=== PATIENT | male | born 1940 | race Caucasian/White ===

== ENCOUNTER 2022-12-15 10:32 | Outpatient (CLI) | payer MEDICARE, SELFPAY ==
--- NOTE | 2022-12-15 | USCV_ITS ---
Jean CarlosMega jolly Age: 82 Gender: M : 1940 Exam Date: 12/15/2022 10:58 Ordering Phys: Lakisha Scott Technologist: Kiko Blanco [place]am Location[place] [facility] [place] Indication: Edema BP: 100 / 80 HR: 66 Rhythm: Atrial fibrillation Technical Quality: Technically difficult study MEASUREMENTS (Male / Female) Normal Values 2D ECHO LV Diastolic Diameter PLAX 5.9 cm 4.2 - 5.9 / 3.9 - 5.3 cm LV Systolic Diameter PLAX 5.3 cm IVS Diastolic Thickness 0.7 cm 0.6 - 1.0 / 0.6 - 0.9 cm IVS Systolic Thickness 1.1 cm LVPW Diastolic Thickness 1.3 cm 0.6 - 1.0 / 0.6 - 0.9 cm LVPW Systolic Thickness 1.8 cm LVOT Diameter 2.1 cm LV Ejection Fraction 2D Teich 22.2 % LV Ejection Fraction MOD 2C 20.1 % LV Ejection Fraction 2C AL 20.5 % LA Diameter 4.2 cm LA Width 3.6 cm LA Height 5.8 cm RA Width 4.0 cm RA Height 5.0 cm Aorta at Sinotubular Diameter 2.0 cm IVC Diameter 1.5 cm M-MODE Aortic Annulus Diameter 2.4 cm LA Ao Ratio MM 1.7 MV E Point Septal Separation 2.5 cm DOPPLER AV Peak Velocity 187.3 cm/s LVOT Peak Velocity 76.0 cm/s AV Area Cont Eq vti 1.5 cm squared AV Area Cont Eq pk 1.5 cm squared MV Peak Velocity 165.0 cm/s MV Area PHT 8.5 cm squared MV E' Velocity 56.5 cm/s Mitral E to MV E' Ratio 7.7 Mitral E to LV E' Lateral Ratio 7.2 Mitral E to LV E' Septal Ratio 8.3 TR Peak Velocity 260.3 cm/s TR Peak Gradient 27.1 mmHg TR Mean Velocity 212.4 cm/s TR Mean Gradient 18.5 mmHg TR Velocity Time Integral 55.7 cm Right Atrial Pressure 3.0 mmHg Pulmonary Artery Systolic Pressu 30.1 mmHg PV Peak Velocity 105.3 cm/s RV Acceleration Time 0.1 s RV Ejection Time 0.2 s RV AcT/ET 0.3 FINDINGS Left Ventricle Dilated left ventricular cavity. Severely decreased left ventricular systolic function. Left ventricular ejection fraction is estimated at 20 %. Probably severe global hypokinesis. Right Ventricle Normal right ventricular size and systolic function. Right ventricular systolic pressure 30.1 mmHg. Right Atrium Normal right atrial size. Left Atrium Moderately increased left atrial size. Mitral Valve Thickened mitral valve with moderate mitral annular calcification. No mitral valve stenosis. Mild mitral valve regurgitation. Aortic Valve Mildly thickened and calicified trileaflet aortic valve. No aortic valve stenosis. Trace aortic valve regurgitation. Tricuspid Valve Structurally normal tricuspid valve. Pulmonic Valve Pulmonic valve not well visualized. Pericardium No pericardial effusion. Aorta Normal size aortic root and proximal ascending aorta. IVC Inferior vena cava not visualized. CONCLUSIONS 1. This is a technically very difficult study. 2. Dilated left ventricular cavity. Severely decreased left ventricular systolic function. Left ventricular ejection fraction is estimated at 20 %. Probably severe global hypokinesis. 3. Mild mitral valve regurgitation. 4. No prior similar studies to compare. Marielle Cobb MD (Electronically Signed) Final Date: 20 December 2022 17:49 S
== END 2022-12-15 10:33 | disposition home or self-care (01) ==
PROVIDERS: PCP Physician Assistant; Visit Provider Physician Assistant
DX: R60.9 Edema, unspecified (principal)
CPT/HCPCS: 93306

== ENCOUNTER 2022-12-28 20:00 | Outpatient (CLI) | payer MEDICARE, SELFPAY | END 2022-12-28 20:01 | disposition home or self-care (01) | PROVIDERS: PCP Physician Assistant; Visit Provider Physician Assistant | DX: G47.10 Hypersomnia, unspecified (principal); R53.83 Other fatigue; R06.83 Snoring; G47.33 Obstructive sleep apnea (adult) (pediatric) | CPT/HCPCS: 95810 ==

== ENCOUNTER → 2023-01-18 09:40 | Outpatient (BNVA) | payer MEDICARE, SELFPAY | PROVIDERS: PCP Physician Assistant; Visit Provider Internal Medicine | DX: R06.02 Shortness of breath (principal) | CPT/HCPCS: 93225 ==

== ENCOUNTER → 2023-02-27 12:18 | Outpatient (BNVA) | payer MEDICARE, SELFPAY | PROVIDERS: PCP Physician Assistant; Visit Provider Internal Medicine | DX: I11.0 Hypertensive heart disease with heart failure (principal); I50.9 Heart failure, unspecified; Z87.891 Personal history of nicotine dependence | CPT/HCPCS: 93005; 99204 ==

== ENCOUNTER 2023-04-12 10:24 | Observation (INO) | payer MEDICARE, SELFPAY ==
[2023-04-12 07:30] VITALS: BP 152/89; PULSE 72; RESP 18; TEMP 37; O2SAT 96; BMI 38.9
--- NOTE | 2023-04-12 07:30 | XACV_ITS ---
Exam Room: 2 Ht: 165 cm Wt: 106 kg BSA: 2.26 m2 Gender: Male : 1940 Any Known Allergies: Penicillins Exam Priority: Routine Procedure(s): Procedure Description: Diagnostic procedure Procedure Description: Coronary Angiography Diagnostic Cath Status: Elective Diagnostic Findings * INDICATION: 82-year-old man with past medical history of hypertension has recently been diagnosed with significant systolic congestive heart failure with EF of 20%. Has dyspnea on exertion and shortness of breath. Right and left heart cath planned for today to assess etiology of CHF and cardiac pressures. * Proximal Left Anterior Descending: chronic total occlusion, CHARLENE: 0 flow. * Right heart cath was attempted however catheter could not be advanced from right brachial access. Access difficulty in femoral vein as well. Decision made to abort right heart cath and proceed with left heart cath only. * Left Main has no disease. * Circumflex has no disease. * Distal Right Coronary Artery: mild 40% stenosis, CHARLENE: 3 flow. * Coronary angiography shows right dominance. Conclusions 1. Chronic total occlusion of proximal LAD. 2. Moderate RCA stenosis.. 3. Ischemic cardiomyopathy. Recommendations * Guideline directed heart failure therapy. * Outpatient cardiology follow up in 2 weeks. Interventional RX Recommendation: medical therapy and/or counseling Diagnostic RX Recommendation: medical therapy and/or counseling Anticoagulation: Heparin Pressures Phase:Rest AO : 104 / 80 ( 93 ) @ 10:28:00 AM 110 / 75 ( 92 ) @ 10:52:00 AM Clinical Evaluation EBL: 5mL-10mL Procedural Details Procedure Consent Obtained. Pre-Procedure Time Out. Identified patient by full name and date of as verbalized by the patient/guarantor. Does the consent match the physician's order: Yes. Accurate & Complete Informed Consent: Yes. Inpatient/Outpatient History & Physical on Chart: Yes. If H&P is completed, is and addenduem needed: No. Visualize and Verify Site with Patient/Guarantor: N/A. Relevant Radiology Images available: Yes. The risks, benefits, and alternatives of sedation and/or procedure were discussed by physician. The patient agrees to continue. Procedure started. [facility] Clinical Fraility Score: 4: Vulnerable. Park Interpreter Indications: Other/New Onset systolic heart failure. Chest Pain Symptom Assessment: Asymptomatic. Cardiovascular Instability: No. Correct patient, site and procedure confirmed by cath team. PERRLA. Strong, equal hand ironworker foreman bilaterally. Lungs clear x 5 lobes. IV Site on Arrival: 20 gauge in the left anticubital. IV Site on Arrival: 20 gauge in the right anticubital to be used for the RHC procedure. IV Fluids: 0.9% NaCl at KVO. 0 mL infused prior to laundry laborer. Pre Procedural Pulses: bilateral dorsalis pedis was 1+. Pre Procedural Pulses: bilateral posterior tibial was 1+. Pre Procedural Pulses: bilateral radial was 2+. right groin was prepped with chloroprep then draped in the usual sterile fashion. right radial was prepped with chloroprep then draped in the usual sterile fashion. right brachial was prepped with chloroprep then draped in the usual sterile fashion. Physician notified. Patient's family in CPRU. Dr. Burden will update at the completion of the procedure. Equipment: 6F - Radial. Cardiac Cath Pack. ACIST Manifold Kit Model BT 2000. Heparinized Saline (2 units/mL), 1000 mL bag. Physician arrived. Baseline sample Acquired. HR: 71 BPM. Physician scrubbed in. Immediate Pre-Procedure Time Out. Correct Patient: Yes; Correct Procedure: Yes; Correct Site: Yes; Correct Patient Position: Yes; Correct Supplies: Yes; Dried Flammable Prep: Yes; Blood Products Available: N/A;. [place] catheter inserted. [place] wire in through the [place]. Unable to advance swan. [place] wire and swan out. Will move to venous access in the right groin. Lidocaine 1% infiltrated to the right groin. Venous access obtained with a micropuncture set. 6F 0.035 dilator in. 6F 0.035 dilator out. Microdilator in. Microdilator out. 0.035 sheath wire out, manual pressure being held by Dr. Burden. A Manual Compression was successful obtaining hemostatsis at the Right Femoral vein insertion site. Oxygen started at 2liters/min via nasal canula. Lidocaine 1% infiltrated to the right radial. Arterial access obtained. A 5 chilean TIG catheter in over the exchange J wire. Multiple views taken of left coronary artery. Catheter removed over the exchange J wire. A 5 chilean JR4 catheter in over the exchange J wire. Exchange J wire in to reposition the catheter. Catheter removed over the exchange J wire. Will abort radial access and move to right femoral for LHC. A TR Band was successful obtaining hemostatsis at the Right Radial artery insertion site. TR band placed. Hemostasis obtained. Lidocaine 1% infiltrated to the right groin. Arterial access obtained with micropuncture set using ultrasound guidance. A 5 chilean JR4 catheter in over the exchange J wire. Catheter removed over the exchange J wire. A 5 chilean AL1 catheter in over the exchange J wire. Multiple views taken of right coronary artery. Catheter removed over the exchange J wire. A 5 chilean Angled Pig catheter in over the exchange J wire. Catheter removed over the exchange J wire. 23cm Sheath exchanged for a short 6 Fr. ACT drawn. Results 143 seconds. Therapeutic limits - pre-heparin administration 90-150 seconds and monitoring heparin during a vascular procedure >[address] Burden scrubbed out. Sheath(s) sutured into position with 2-0 silk and sterile 4x4's and Op-site applied over the site. No oozing or signs and symptoms of hematoma noted. Arterial sheath flushed and connected to tranducer and pressure bag with heparinized saline. Post Procedure: Pulses reassessed and unchanged. PERRLA. Strong, equal hand ironworker foreman bilaterally. No VTE prophylaxis required. 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 Complications: none. A Manual Compression was successful obtaining hemostatsis at the Right Brachial Vein insertion site. Medication's Wasted: Heparin = 1000 Units. Medication's Wasted: Other = Fentanyl 75 mcg. Medication's Wasted: Nitro = 49.8 mg. Total IV fluids: 76 mL. Estimated blood loss: 5mL-10mL. Responsiveness - Normal response to verbal stimuli; alert and oriented, PERRLA. Airway - Unaffected, no intervention required; spontaneous ventilation. Circulation: W/N/L, pulses unchanged. Nausea/Vomiting: No. Procedure completed. Patient transferred by bed to 1st floor. Vital chart was stopped. Access Site Site: Right Brachial Vein Sheath Size: 6 Fr Hemostasis Method: Manual Compression Hemostasis Success: Successful Site: Right Femoral vein Sheath Size: 6 Fr Hemostasis Method: Manual Compression Hemostasis Success: Successful Site: Right Radial artery Sheath Size: 6 Fr Hemostasis Method: TR Band Hemostasis Success: Successful Site: Right Femoral artery Sheath Size: 6 Fr Hemostasis Success: Unsuccessful Procedure Medications Start: 8:57 AM Stop: 8:57 AM Medication: Versed Amount: 1 mg Route: I.V. Start: 8:57 AM Stop: 8:57 AM Medication: Fentanyl Amount: 25 mcg Route: I.V. Start: 9:23 AM Stop: 9:23 AM Medication: Nitrogylcerin Amount: 200 mcg Route: I.A. Start: 9:26 AM Stop: 9:26 AM Medication: Heparin Amount: 2000 units Route: I.V. Start: 9:31 AM Stop: 9:31 AM Medication: Versed Amount: 1 mg Route: I.V. Start: 9:32 AM Stop: 9:32 AM Medication: Heparin Amount: 1000 units Route: I.V. I, the attending physician, have reviewed and verified all procedure medications. Yes, all medications given per verbal order History/Risk Factors Hypertension: Yes Dyslipidemia: No Peripheral Arterial Disease (PAD): No Myocardial Infarction (PR): No Obesity: No Renal Disease: No Tobacco Use: Former Prior Interventions PCI: No CABG: No Valve Surgery: No Report Signatures Finalized by Yoshi Burden MD on 04/22/2023 01:26 PM
[2023-04-12] MEDS: diphenhydrAMINE 50 mg Capsule PO (07:48)
[2023-04-12] MEDS: aspirin 325 mg Tablet PO (07:48)
[2023-04-12 07:53] LABS: Basophils # 0.1 10^3/uL (0.0-0.1); Basophils % 1.3 %; Eosinophils # 0.3 10^3/uL (0.0-0.8); Eosinophils % 3.8 %; Hematocrit 47.1 % (42.0-52.0); Hemoglobin 15.4 g/dL (11.7-16.6); Lymphocytes # 2.6 10^3/uL (0.8-4.8); Mean Corpuscular HGB Conc 32.7 g/dL (30.0-36.0); Mean Corpuscular Hemoglobin 29.4 pg (28.0-34.0); Mean Corpuscular Volume 90.1 fl (80-94); Mean Platelet Volume 10.7 fL (7.4-10.4); Monocytes # 0.8 10^3/uL (0.2-0.9); Monocytes % 9.2 %; Neutrophils # 4.54 10^3/uL (1.8-7.7); Neutrophils % 54.5 %; Nucleated Red Blood Cells % 0 %; Platelet Count 253 10^3/cmm (130-400); Red Blood Count 5.23 10^6/uL (4.1-5.3); Red Cell Distribution Width 13.6 % (12.1-15.1); White Blood Count 8.4 10^3/uL (4.0-10.0)
[2023-04-12 08:05] LABS: Anion Gap 13.2 (5-19); Blood Urea Nitrogen 21 mg/dL (8-23); Calcium 9.6 mg/dL (8.5-10.5); Carbon Dioxide 31 mmol/L (22-29); Chloride 99 mmol/L (98-107); Glucose 96 mg/dL (65-115); Osmolality Calculated 291 mOsm/kg (285-295); Potassium 4.2 mmol/L (3.5-5.1); Sodium 139 mmol/L (136-145)
--- NOTE | 2023-04-12 08:53 | W.PM.OPSFHP ---
Same Day Surgery H&P Indication for Procedure/HPI DATE OF PROCEDURE: April 12, 2023 CHIEF COMPLAINT/INDICATIONFOR SURGICAL PROCEDURE: New onset congestive heart failure PREOP DIAGNOSIS: New onset congestive heart failure PLANNED PROCEDURE: Operation Date: 04/12/23 08:30 Proposed Procedures p [facility] w/wo 73150,R06.02, R94.30,I50.9(Bilateral) - Yoshi Burden M.D Possible percutaneous coronary intervention 82-year-old man with past medical history of hypertension has recently been diagnosed with significant systolic congestive heart failure with EF of 20%. Has dyspnea on exertion and shortness of breath. Right and left heart cath planned for today to assess etiology of CHF and cardiac pressures. Medications/Allergies* Home Medications Medication Instructions Recorded Confirmed Type B complex PO 02/27/23 History acetylcysteine 600 mg tablet (NAC) 600 mg PO 02/27/23 02/27/23 History ascorbic acid (vitamin C) 1,000 mg 1 g PO Q6H 02/27/23 02/27/23 History capsule carvedilol 6.25 mg tablet (Coreg) 6.25 mg PO BID 02/27/23 04/12/23 History cholecalciferol (vitamin D3) 250 250 mcg PO DAILY 02/27/23 04/12/23 History mcg (10,000 unit) capsule cyanocobalamin (vitamin B-12) 1,000 mcg PO DAILY 02/27/23 04/12/23 History 1,000 mcg capsule furosemide 40 mg tablet (Lasix) 40 mg PO DIRECTED 02/27/23 04/12/23 History losartan 100 mg tablet 100 mg PO DAILY 02/27/23 04/12/23 History lysine 500 mg tablet (L-Lysine) 500 mg PO DAILY 02/27/23 04/12/23 History magnesium oxide 500 mg capsule 500 mg PO DAILY 02/27/23 04/12/23 History qkqmyfab-sfz-whoud acid 300 1 tab PO DAILY 02/27/23 04/12/23 History mcg-lycopene 600 mcg-lutein 300 mcg tablet (Centrum Silver Men) omega 2-tup-cak-fish oil 1,000 mg 1 cap PO DAILY 02/27/23 04/12/23 History (120 mg-180 mg) capsule potassium chloride 20 mEq 20 meq PO DAILY 02/27/23 04/12/23 History tablet,extended release prevagen PO 02/27/23 History quercetin 500 mg capsule 500 mg PO 02/27/23 02/27/23 History sour urbano extract 1,000 mg mg PO 02/27/23 02/27/23 History capsule (Tart Urbano Extract) vitamin E (dl, acetate) ea topical 02/27/23 02/27/23 History zinc sulfate 50 mg zinc (220 mg) 50 mg PO DAILY 02/27/23 02/27/23 History capsule Allergies/Adverse Reactions Allergy/AdvReac Type Severity Reaction Status Date / Time Penicillins Allergy Severe ALGY-Hives Verified 04/11/23 12:14 Current Medications: Generic Name Dose Route Start Last Admin Trade Name Freq PRN Reason Stop Dose Admin Sodium Chloride 1,000 mls @ 50 mls/hr 04/12/23 07:30 04/12/23 07:48 Sodium Chloride 0.9% IV 04/13/23 03:29 Not Given .Q20H ONE Pertinent History/Comorbid Conditions* Medical History (Updated 03/05/23 @ 12:55 by Yoshi Burden M.D) CHF (congestive heart failure) Cognitive decline Edema HTN (hypertension) Surgical History (Updated 03/05/23 @ 12:52 by Yoshi Burden M.D) H/O vasectomy Social History Smoking and tobacco status: former smoker Alcohol intake: former Pertinent Exam Findings alert, oriented x 3, clear to auscultation bilaterally and regular rate & rhythm Conscious Sedation Assessment PATIENT ASSESSED PRIOR TO SEDATION, WITH NO CHANGE NOTED: Yes AIRWAY EVAL/ANESTHESIA PLAN: normal airway, ASA IV, Local Anesthesia, Risks, benefits & alternatives of sedation and/or procedure discussed and Patient agrees to continue as planned ADDITIONAL INFORMATION: Moderate sedation Recommendations Surgery/Procedure today (Left heart cath with possible percutaneous coronary intervention) Coding Level of Care Code Acute Code for Chg Fwd Diagnoses
--- NOTE | 2023-04-12 11:44 | PC.NURSE ---
Sheath pulled upon arrival. Pull was uneventful. Dressing applied and patient educated regarding activity restrictions.
[2023-04-12 16:46] VITALS: BP 152/89; PULSE 72; RESP 18; TEMP 37; O2SAT 96
== END 2023-04-12 18:43 | disposition home or self-care (01) ==
LOC: CSU 10:37
PROVIDERS: Admitting Provider Internal Medicine; PCP Physician Assistant; Visit Provider Internal Medicine
DX: I11.0 Hypertensive heart disease with heart failure (principal); I50.20 Unspecified systolic (congestive) heart failure; Z87.891 Personal history of nicotine dependence; I25.82 Chronic total occlusion of coronary artery
CPT/HCPCS: 36415; 80048; 85025; 85347; 93454; 96361; 96365; 99152; 99153; C1751; C1769; C1887; C1894; G0378; J1644; J2250; J3010; J3490; J7030; Q0163; Q9967

== ENCOUNTER → 2023-04-18 10:28 | Outpatient (BNVA) | payer MEDICARE, SELFPAY | PROVIDERS: PCP Physician Assistant; Visit Provider Nurse Practitioner Family | DX: I25.10 Atherosclerotic heart disease of native coronary artery without angina pectoris (principal); Z87.891 Personal history of nicotine dependence; I11.0 Hypertensive heart disease with heart failure; I50.9 Heart failure, unspecified | CPT/HCPCS: 36415; 80048; 99214 ==

== ENCOUNTER → 2023-08-31 16:45 | Outpatient (BNVA) | payer MEDICARE, SELFPAY | PROVIDERS: PCP Physician Assistant; Visit Provider Internal Medicine | DX: R06.09 Other forms of dyspnea (principal); I10 Essential (primary) hypertension; I25.10 Atherosclerotic heart disease of native coronary artery without angina pectoris; I50.9 Heart failure, unspecified | CPT/HCPCS: 36415; 80048; 83880; 99214 ==

== ENCOUNTER 2023-09-08 15:02 | Outpatient (CLI) | payer MEDICARE, SELFPAY ==
--- NOTE | 2023-09-08 15:15 | USCV_ITS ---
Mega Evangelista Age: 83 Gender: M : 1940 Exam Date: 09/08/2023 16:00 Ordering Phys: Yoshi Burden M.D ([email or web address]) Technologist: ELVIS Exam Location: [facility] – [place] Indication: SOB, JAARMILLO, BP: 157 / 81 HR: 59 Rhythm: Sinus Technical Quality: Adequate MEASUREMENTS (Male / Female) Normal Values 2D ECHO LV Diastolic Diameter PLAX 5.3 cm 4.2 - 5.9 / 3.9 - 5.3 cm LV Systolic Diameter PLAX 3.6 cm IVS Diastolic Thickness 1.3 cm 0.6 - 1.0 / 0.6 - 0.9 cm IVS Systolic Thickness 1.5 cm LVPW Diastolic Thickness 0.8 cm 0.6 - 1.0 / 0.6 - 0.9 cm LVPW Systolic Thickness 1.0 cm LV Ejection Fraction 2D Teich 60.3 % LV Ejection Fraction MOD 2C 50.7 % LV Ejection Fraction 2C AL 49.8 % LA Diameter 4.6 cm LA Width 3.7 cm LA Height 5.3 cm RA Width 4.3 cm RA Height 4.8 cm Aorta at Sinotubular Diameter 3.0 cm IVC Diameter 1.4 cm M-MODE LV Diastolic Diameter MM 6.0 cm 4.2 - 5.9 / 3.9 - 5.3 cm LV Systolic Diameter MM 4.6 cm LV Ejection Fraction MM Teich 47.6 % Aortic Annulus Diameter 2.6 cm LA Ao Ratio MM 2.0 MV E Point Septal Separation 2.3 cm DOPPLER AV Peak Velocity 179.3 cm/s LVOT Peak Velocity 81.0 cm/s MV Peak Velocity 111.0 cm/s MV Area PHT 2.2 cm squared Mitral E to A Ratio 0.7 MV E' Velocity 31.5 cm/s Mitral E to MV E' Ratio 14.4 Mitral E to LV E' Lateral Ratio 20.2 Mitral E to LV E' Septal Ratio 11.2 TR Peak Velocity 196.0 cm/s TR Peak Gradient 15.4 mmHg Right Atrial Pressure 5.0 mmHg Pulmonary Artery Systolic Pressu 20.4 mmHg PV Peak Velocity 106.0 cm/s RV Acceleration Time 0.1 s RV Ejection Time 0.3 s RV AcT/ET 0.3 FINDINGS Left Ventricle Left ventricle is normal in size.Grossly LV systolic function is moderately reduced. Accurate assessment of regional wall motion abnormalities is not possible because of poor ultrasonic windows. Grade 1 diastolic dysfunction Right Ventricle The right ventricle is normal in size and function. Right Atrium The right atrium is normal in size. Left Atrium Dilated Mitral Valve Structurally normal mitral valve. Trace mitral regurgitation. Aortic Valve Grossly normal. Mild aortic regurgitation. No significant aortic stenosis. Tricuspid Valve Mild tricuspid regurgitation. Insufficient TR jet to calculate RVSP Pulmonic Valve Trace pulmonic regurgitation. Pericardium Normal pericardium without effusion. Aorta Normal ascending aorta dimension. IVC Not well visualized CONCLUSIONS Technically limited quality because of poor ultrasonic windows. Grossly LV systolic function is moderately reduced. Regional wall motion abnormalities cannot be accurately assessed because of limited visualization. Left atrial dilation. Trace mitral regurgitation Mild aortic regurgitation Mild tricuspid regurgitation Trace pulmonic regurgitation Comparison with prior echocardiograms is not possible because of limited visualization Yoshi Burden MD (Electronically Signed) Final Date: 09 September 2023 14:05 S
== END 2023-09-08 15:03 | disposition home or self-care (01) ==
PROVIDERS: PCP Physician Assistant; Visit Provider Internal Medicine
DX: R06.09 Other forms of dyspnea (principal); R06.02 Shortness of breath; I08.2 Rheumatic disorders of both aortic and tricuspid valves
CPT/HCPCS: 93306

== ENCOUNTER 2023-10-03 16:19 | Outpatient (CLI) | payer MEDICARE, SELFPAY ==
[2023-10-03 17:22] LABS: Blood Urea Nitrogen 21 mg/dL (8-23); Calcium 9.6 mg/dL (8.5-10.5); Carbon Dioxide 29 mmol/L (22-29); Chloride 103 mmol/L (98-107); Glucose 139 mg/dL (65-115); NT Pro B Type Natriuretic Pept 453 pg/mL (0-450); Osmolality Calculated 303 mOsm/kg (285-295); Sodium 144 mmol/L (136-145)
[2023-10-03 17:25] LABS: Anion Gap 16.1 (5-19); Potassium 4.1 mmol/L (3.5-5.1)
== END 2023-10-03 16:20 | disposition home or self-care (01) ==
PROVIDERS: PCP Physician Assistant; Visit Provider Internal Medicine
DX: I11.0 Hypertensive heart disease with heart failure (principal); I50.9 Heart failure, unspecified
CPT/HCPCS: 36415; 80048; 83880

== ENCOUNTER 2023-12-07 13:01 | Outpatient (RCR) | payer MEDICARE, SELFPAY | END 2023-12-20 23:59 | disposition home or self-care (01) | LOC: CR 13:01 | PROVIDERS: PCP Physician Assistant; Referring Provider Internal Medicine; Visit Provider Physician Assistant | DX: I25.10 Atherosclerotic heart disease of native coronary artery without angina pectoris (principal); I50.9 Heart failure, unspecified | CPT/HCPCS: 93798 ==

== ENCOUNTER 2023-12-15 14:04 | Outpatient (CLI) | payer MEDICARE, SELFPAY ==
--- NOTE | 2023-12-15 14:15 | USCV_ITS ---
Mega Evangelista Age: 83 Gender: M : 1940 Exam Date: 12/15/2023 15:00 Ordering Phys: Yoshi Burden M.D ([email or web address]) Technologist: NA Exam Location[place] [facility] [place] Indication: ECHO LIMITED FOR EF WITH CONTRAST BP: 157 / 81 HR: 71 Rhythm: Sinus Technical Quality: Adequate MEASUREMENTS (Male / Female) Normal Values 2D ECHO LVOT Diameter 2.0 cm LV Ejection Fraction MOD 2C 59.6 % LV Ejection Fraction 2C AL 60.6 % LA Diameter 4.0 cm LA Width 4.2 cm LA Height 5.3 cm RA Width 3.8 cm RA Height 5.4 cm Aorta at Sinotubular Diameter 2.4 cm M-MODE Aortic Annulus Diameter 2.7 cm LA Ao Ratio MM 1.4 MV E Point Septal Separation 1.4 cm DOPPLER Right Atrial Pressure 3.0 mmHg FINDINGS Left Ventricle Right Ventricle Right Atrium Left Atrium Mitral Valve Aortic Valve Tricuspid Valve Pulmonic Valve Pericardium Aorta IVC CONCLUSIONS LV systolic function is moderately reduced with EF of 35 to 40%. Moderate global hypokinesis with more prominent hypokinesis of apical wall Comparison with prior echocardiogram not possible as contrast was not used on the previous one Yoshi Burden MD (Electronically Signed) Final Date: 22 December 2023 15:56 S
[2023-12-15] MEDS: perflutren protein-a microsphr 0.22 mg/mL SDV 3 mL IV (15:31)
== END 2023-12-15 14:05 | disposition home or self-care (01) ==
LOC: RAD 14:05
PROVIDERS: PCP Physician Assistant; Visit Provider Internal Medicine
DX: I25.10 Atherosclerotic heart disease of native coronary artery without angina pectoris (principal); I50.20 Unspecified systolic (congestive) heart failure
CPT/HCPCS: C8924; Q9956

== ENCOUNTER 2023-12-21 10:10 | Outpatient (RCR) | payer MEDICARE, SELFPAY | END 2024-01-18 23:59 | disposition home or self-care (01) | LOC: CR 10:10 | PROVIDERS: PCP Physician Assistant; Referring Provider Internal Medicine; Visit Provider Physician Assistant | DX: I25.10 Atherosclerotic heart disease of native coronary artery without angina pectoris (principal); I50.9 Heart failure, unspecified | CPT/HCPCS: 93798 ==

== ENCOUNTER 2024-01-19 10:36 | Outpatient (RCR) | payer MEDICARE, SELFPAY | END 2024-02-18 23:59 | disposition home or self-care (01) | LOC: CR 10:36 | PROVIDERS: PCP Physician Assistant; Referring Provider Internal Medicine; Visit Provider Physician Assistant | DX: I50.9 Heart failure, unspecified (principal) | CPT/HCPCS: 93798 ==

== ENCOUNTER 2024-02-20 10:44 | Outpatient (RCR) | payer MEDICARE, SELFPAY | END 2024-03-19 23:59 | disposition home or self-care (01) | LOC: CR 10:44 | PROVIDERS: PCP Physician Assistant; Referring Provider Internal Medicine; Visit Provider Physician Assistant | DX: I25.10 Atherosclerotic heart disease of native coronary artery without angina pectoris (principal); I50.9 Heart failure, unspecified | CPT/HCPCS: 93798 ==

== ENCOUNTER → 2024-03-01 10:05 | Outpatient (BNVA) | payer MEDICARE, SELFPAY | PROVIDERS: PCP Physician Assistant; Visit Provider Internal Medicine | DX: I11.0 Hypertensive heart disease with heart failure (principal); I50.9 Heart failure, unspecified; Z87.891 Personal history of nicotine dependence | CPT/HCPCS: 99214 ==

== ENCOUNTER 2024-03-20 12:13 | Outpatient (RCR) | payer SELFPAY | END 2024-04-19 23:59 | disposition home or self-care (01) | LOC: CR 12:13 | PROVIDERS: PCP Physician Assistant; Referring Provider Internal Medicine; Visit Provider Physician Assistant | DX: I50.9 Heart failure, unspecified (principal) ==

== ENCOUNTER 2024-05-20 15:38 | Outpatient (RCR) | payer SELFPAY | END 2024-06-19 23:59 | disposition home or self-care (01) | LOC: CR 15:38 | PROVIDERS: PCP Physician Assistant; Referring Provider Internal Medicine; Visit Provider Physician Assistant | DX: Z95.5 Presence of coronary angioplasty implant and graft (principal) ==

== ENCOUNTER 2024-06-20 08:09 | Outpatient (RCR) | payer SELFPAY | END 2024-07-25 09:04 | disposition home or self-care (01) | LOC: CR 08:09 | PROVIDERS: PCP Physician Assistant; Referring Provider Internal Medicine; Visit Provider Physician Assistant | DX: Z95.5 Presence of coronary angioplasty implant and graft (principal) ==

== ENCOUNTER 2024-07-24 12:29 | Outpatient (RCR) | payer SELFPAY | END 2024-08-19 23:59 | disposition home or self-care (01) | LOC: CR 12:29 | PROVIDERS: PCP Physician Assistant; Referring Provider Internal Medicine; Visit Provider Physician Assistant | DX: Z95.5 Presence of coronary angioplasty implant and graft (principal) ==

== ENCOUNTER 2024-08-20 13:23 | Outpatient (RCR) | payer SELFPAY | END 2024-09-19 23:59 | disposition home or self-care (01) | LOC: CR 13:23 | PROVIDERS: PCP Physician Assistant; Referring Provider Internal Medicine; Visit Provider Physician Assistant | DX: Z95.5 Presence of coronary angioplasty implant and graft (principal) ==

== ENCOUNTER → 2024-09-05 12:13 | Outpatient (BNVA) | payer MEDICARE, SELFPAY | PROVIDERS: PCP Physician Assistant; Visit Provider Internal Medicine | DX: I11.0 Hypertensive heart disease with heart failure (principal); I50.9 Heart failure, unspecified; Z87.891 Personal history of nicotine dependence | CPT/HCPCS: 99214 ==

== ENCOUNTER 2024-09-20 13:09 | Outpatient (RCR) | payer SELFPAY | END 2024-10-19 23:59 | disposition home or self-care (01) | LOC: CR 13:09 | PROVIDERS: PCP Physician Assistant; Referring Provider Internal Medicine; Visit Provider Physician Assistant | DX: Z95.5 Presence of coronary angioplasty implant and graft (principal) ==

== ENCOUNTER 2024-10-20 13:23 | Outpatient (RCR) | payer SELFPAY | END 2024-11-19 23:59 | disposition home or self-care (01) | LOC: CR 13:23 | PROVIDERS: PCP Physician Assistant; Referring Provider Internal Medicine; Visit Provider Physician Assistant | DX: Z95.5 Presence of coronary angioplasty implant and graft (principal) ==

== ENCOUNTER 2024-11-20 10:14 | Outpatient (RCR) | payer SELFPAY | END 2024-12-20 23:59 | disposition home or self-care (01) | LOC: CR 10:14 | PROVIDERS: PCP Physician Assistant; Referring Provider Internal Medicine; Visit Provider Physician Assistant | DX: Z95.5 Presence of coronary angioplasty implant and graft (principal) ==

== ENCOUNTER 2024-12-23 15:32 | Outpatient (RCR) | payer SELFPAY | END 2025-01-17 23:59 | disposition home or self-care (01) | LOC: CR 15:32 | PROVIDERS: PCP Physician Assistant; Referring Provider Internal Medicine; Visit Provider Physician Assistant | DX: Z95.5 Presence of coronary angioplasty implant and graft (principal) ==

== ENCOUNTER 2025-01-18 12:35 | Outpatient (RCR) | payer SELFPAY | END 2025-02-17 23:59 | disposition home or self-care (01) | LOC: CR 12:35 | PROVIDERS: PCP Physician Assistant; Referring Provider Internal Medicine; Visit Provider Physician Assistant | DX: Z95.5 Presence of coronary angioplasty implant and graft (principal) ==

== ENCOUNTER 2025-02-18 14:08 | Outpatient (RCR) | payer SELFPAY | END 2025-03-19 23:59 | disposition home or self-care (01) | LOC: CR 14:08 | PROVIDERS: PCP Physician Assistant; Referring Provider Internal Medicine; Visit Provider Physician Assistant | DX: Z95.5 Presence of coronary angioplasty implant and graft (principal) ==

== ENCOUNTER → 2025-03-06 09:34 | Outpatient (BNVA) | payer MEDICARE, SELFPAY | PROVIDERS: PCP Physician Assistant; Visit Provider Nurse Practitioner Family | DX: I11.0 Hypertensive heart disease with heart failure (principal); I50.9 Heart failure, unspecified; I25.10 Atherosclerotic heart disease of native coronary artery without angina pectoris; J44.9 Chronic obstructive pulmonary disease, unspecified; Z87.891 Personal history of nicotine dependence | CPT/HCPCS: 99214 ==

== ENCOUNTER 2025-03-20 12:20 | Outpatient (RCR) | payer SELFPAY | END 2025-04-19 23:59 | disposition home or self-care (01) | LOC: CR 12:20 | PROVIDERS: PCP Physician Assistant; Referring Provider Internal Medicine; Visit Provider Physician Assistant | DX: Z95.5 Presence of coronary angioplasty implant and graft (principal) ==

== ENCOUNTER 2025-04-07 18:35 | Emergency (ER) | payer MEDICARE, SELFPAY ==
[2025-04-07] VITALS (12 sets, daily range): BP systolic 142–168; BP diastolic 69–104; PULSE 80–97; RESP 14–20; TEMP 36.7; O2SAT 94–96; BMI 42.3
--- NOTE | 2025-04-07 18:39 | ECG_ITS ---
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 Measurements Intervals [place] Rate: 80 P: 94 PA: 282 QRS: -31 QRSD: 108 T: 91 QT: 349 QTc: 403 Interpretive Statements SINUS RHYTHM WITH FIRST DEGREE AV BLOCK LEFT AXIS DEVIATION [QRS AXIS < -30] LOW QRS VOLTAGE IN PRECORDIAL LEADS [QRS DEFLECTION < 1.0 mV IN CHEST LEADS] ANTEROSEPTAL MYOCARDIAL INFARCTION , OF INDETERMINATE AGE [40+ ms Q WAVE IN V1-V4] No previous ECG available for comparison Electronically Signed On 04-08-2025 06:19:52 CDT by Reyna Gracia M.D. [id number]
--- NOTE | 2025-04-07 18:39 | CTR_ITS ---
PROCEDURE INFORMATION: Exam: CT Head Without Contrast Exam date and time: 04/07/2025 7:13 PM Age: 84 years old Clinical indication: Dizziness TECHNIQUE: Imaging protocol: Computed tomography of the head without contrast. Radiation optimization: All CT scans at this facility use at least one of these dose optimization techniques: automated exposure control; mA and/or kV adjustment per patient size (includes targeted exams where dose is matched to clinical indication); or iterative reconstruction. COMPARISON: No relevant prior studies available. RADIATION DOSE METRICS: Total DLP (mGy-cm): 1209.88 FINDINGS: Brain: There is no acute intracranial hemorrhage, cerebral edema, or midline shift. Chronic microvascular ischemic changes are seen in the periventricular white matter. Age-related cerebral and cerebellar volume loss is present. Cerebral ventricles: Mild ex vacuo dilation of the lateral and third ventricles is noted. Paranasal sinuses: There is no acute sinusitis. Mastoid air cells: The mastoid air cells are clear. Orbital cavities: The included orbital structures are unremarkable. Bones: Unremarkable. No acute fracture. Soft tissues: Unremarkable. Vasculature: Atherosclerotic calcifications are seen involving the cavernous carotid arteries. CT/CT head wo con* [id number] IMPRESSION: 1. No acute intracranial abnormality. 2. Atrophy and chronic deep white matter ischemic changes.
--- NOTE | 2025-04-07 18:39 | XRR_ITS ---
PROCEDURE INFORMATION: Exam: XR Chest Exam date and time: 04/07/2025 6:44 PM Age: 84 years old Clinical indication: Other: Dizziness TECHNIQUE: Imaging protocol: Radiologic exam of the chest. Views: 1 view. COMPARISON: No relevant prior studies available. FINDINGS: Lungs: Unremarkable. No consolidation. Pleural spaces: Unremarkable. No pleural effusion. No pneumothorax. Heart/Mediastinum: Unremarkable. No cardiomegaly. Bones/joints: Unremarkable. XR/XR chest 1V portable [id number] IMPRESSION: No acute findings.
[2025-04-07 18:52] LABS: Basophils # 0.1 10^3/uL (0.0-0.1); Basophils % 0.7 %; Eosinophils # 0.2 10^3/uL (0.0-0.8); Eosinophils % 2.3 %; Lymphocytes # 1.7 10^3/uL (0.8-4.8); Lymphocytes % 15.7 %; Mean Corpuscular HGB Conc 32.9 g/dL (30-55); Mean Corpuscular Hemoglobin 29.4 pg (27-33); Mean Corpuscular Volume 89.6 fl (82-101); Mean Platelet Volume 10.5 fL (7.4-10.4); Monocytes # 1.4 10^3/uL (0.2-0.9); Monocytes % 12.8 %; Neutrophils # 7.27 10^3/uL (1.8-7.7); Neutrophils % 68.2 %; Nucleated Red Blood Cells % 0 %; Platelet Count 200 10^3/cmm (157-399); Red Blood Count 4.69 10^6/uL (3.85-5.65); Red Cell Distribution Width 13.2 % (12.1-15.1); White Blood Count 10.64 10^3/uL (3.29-11.43)
[2025-04-07 19:04] LABS: INR 1.02 (0.8-1.2)
[2025-04-07 19:05] LABS: Partial Thromboplastin Time 32.3 SECONDS (23.9-36.7)
[2025-04-07 19:08] LABS: Alanine Aminotransferase 13 U/L (0-41); Albumin Level 3.9 g/dL (3.5-5.2); Alkaline Phosphatase 60 U/L (40-130); Anion Gap 17.2 (5-19); Aspartate Amino Transferase 17 U/L (0-40); Blood Urea Nitrogen 23 mg/dL (8-23); Calcium 9.1 mg/dL (8.5-10.5); Carbon Dioxide 25 mmol/L (22-29); Chloride 101 mmol/L (98-107); Creatinine Clr Calc Pharmacy 83.4326; Glucose 106 mg/dL (65-115); Osmolality Calculated 292 mOsm/kg (285-295); Potassium 4.2 mmol/L (3.5-5.1); Sodium 139 mmol/L (136-145); Total Protein 6.9 g/dL (6.6-8.7)
[2025-04-07 19:09] LABS: Glucose Point of Care 111 mg/dL (70-110)
--- NOTE | 2025-04-07 19:36 | W.ED.WEAKNES ---
HPI - Weakness General: Chief complaint: Weakness Stated complaint: Fall, Weakness Time Seen by Provider: 04/07/25 18:38 History of Present Illness: Mega Evangelista, a male patient with a history of COPD, COVID-19, double pneumonia, and a heart attack, presents to the emergency department with acute weakness and a productive cough. The patient reports experiencing a sudden onset of severe weakness while using the bathroom at home, resulting in collapse and requiring assistance from his and daughter. Mr. Evangelista states he had noticed mild weakness earlier in the day, but it significantly worsened during the bathroom incident. He has been experiencing a productive cough with green sputum for approximately 3 days. The patient's mentions that he has been receiving treatment for what was initially described to them as allergies, though the exact diagnosis is unclear. The patient's baseline functioning appears to have been declining recently. He usually attends cardiac rehabilitation, but was unable to go today due to his symptoms. Mr. Evangelista uses home oxygen at a rate of 2 liters, which he has been on for an unspecified duration. He recently moved from [place], and the exact reason for starting oxygen therapy is unclear, though it may be related to his COPD diagnosis. The sudden onset of severe weakness is the primary concern, with no specific localization reported, although the patient mentions his knees are not as severely affected. There is no mention of fever, chest pain, or shortness of breath beyond his baseline COPD symptoms. Review of Systems General: Reports: 10 or more systems reviewed and unremarkable except in HPI and below PFSH ED PFSH: Medical History Atherosclerosis of coronary artery HTN (hypertension) Edema Cognitive decline CHF (congestive heart failure) Surgical History H/O vasectomy Social History Smoking and tobacco/nicotine status: former use of tobacco/nicotine Alcohol intake: former Physical Exam Const: COMMON NORMALS: no acute distress, patient oriented x3, healthy appearing, alert and well nourished HENMT: COMMON NORMALS: normocephalic HEAD & SCALP: normocephalic Eye: COMMON NORMALS: EOMs intact bilaterally Neck/C-Spine: COMMON NORMALS: full ROM and supple Resp: COMMON NORMALS: normal respiratory effort, No retractions and clear to auscultation bilaterally AUSCULTATION: clear to auscultation bilaterally Cardio: COMMON NORMALS: regular rate, regular rhythm, No gallops present (Cardio) and No murmurs present (Cardio) RATE: regular rate RHYTHM: regular rhythm GI: COMMON NORMALS: Soft to palpation and non-tender PALPATION: Yes Soft to palpation Extremity: GENERAL: Yes normal exam except as noted Neuro: COMMON NORMALS: patient oriented x3 SENSORIUM/ORIENTATION: Yes alert SENSORY EXAM: Yes extremities (Normal sensation in bilateral lower extremities) MOTOR EXAM: Pronator motor function not present, No Tremors during motor activity present, No Motor fasciculations present and Other motor observations present (4 out of 5 strength in bilateral lower extremities) Skin: COMMON NORMALS: no rashes or lesions noted GENERAL SKIN EXAM: no rashes or lesions noted Course Vital Signs: Vital signs: Vital Signs Temperature 98.1 F 04/07/25 18:36 Pulse Rate 87 04/07/25 23:30 Respiratory Rate 14 04/07/25 23:30 Blood Pressure 163/95 04/07/25 23:30 Pulse Oximetry 95 04/07/25 23:30 Oxygen Delivery Me thod Nasal Cannula 04/07/25 23:00 Oxygen Flow Rate 2 04/07/25 19:30 MDM - Weakness Medical Decision Making 84-year-old male presents to the emergency department for evaluation of bilateral lower extremity weakness. On physical exam he does not have any focal neurologic deficit with subjective weakness in his lower extremities. Patient did have elevated blood pressure on his vital signs. He is on his home 2 L of O2 satting normally. Laboratory evaluation is globally normal as is his chest x-ray. His urinalysis is not consistent with a urinary tract infection. Etiology of lower extremity weakness unclear at this time. Encouraged the patient to follow-up his primary care physician for further evaluation. Return precautions were discussed and the patient was discharged home in stable condition. Lab Data 04/07/25 18:47 04/07/25 18:47 Radiology Impressions Chest X-Ray 04/07/25 18:39 IMPRESSION: No acute findings. Head CT 04/07/25 18:39 IMPRESSION: 1. No acute intracranial abnormality. 2. Atrophy and chronic deep white matter ischemic changes. Laboratory Results WBC 10.64 10^3/uL (3.29-11.43) 04/07/25 18:47 RBC 4.69 10^6/uL (3.85-5.65) 04/07/25 18:47 Hgb 13.80 g/dL (11.27-16.99) 04/07/25 18:47 Hct 42.0 % (37-53) 04/07/25 18:47 MCV 89.6 fl (82-101) 04/07/25 18:47 MCH 29.4 pg (27-33) 04/07/25 18:47 MCHC 32.9 g/dL (30-55) 04/07/25 18:47 RDW 13.2 % (12.1-15.1) 04/07/25 18:47 Plt Count 200 10^3/cmm (157-399) 04/07/25 18:47 MPV 10.5 fL (7.4-10.4) H 04/07/25 18:47 Neut % (Auto) 68.2 % 04/07/25 18:47 Lymph % (Auto) 15.7 % 04/07/25 18:47 [place] % (Auto) 12.8 % 04/07/25 18:47 Eos % (Auto) 2.3 % 04/07/25 18:47 Baso % (Auto) 0.7 % 04/07/25 18:47 Neut # (Auto) 7.27 10^3/uL (1.8-7.7) 04/07/25 18:47 Lymph # (Auto) 1.7 10^3/uL (0.8-4.8) 04/07/25 18:47 [place] # (Auto) 1.4 10^3/uL (0.2-0.9) H 04/07/25 18:47 Eos # (Auto) 0.2 10^3/uL (0.0-0.8) 04/07/25 18:47 Baso # (Auto) 0.1 10^3/uL (0.0-0.1) 04/07/25 18:47 Nucleated RBC % (auto) 0 % 04/07/25 18:47 Nucleated RBCs # 0.0 /100WBC 04/07/25 18:47 PT 14.10 SECONDS (12.1-14.9) 04/07/25 18:47 INR 1.02 (0.8-1.2) 04/07/25 18:47 APTT 32.3 SECONDS (23.9-36.7) 04/07/25 18:47 Sodium 139 mmol/L (136-145) 04/07/25 18:47 Potassium 4.2 mmol/L (3.5-5.1) 04/07/25 18:47 Chloride 101 mmol/L (98-107) 04/07/25 18:47 Carbon Dioxide 25 mmol/L (22-29) 04/07/25 18:47 Anion Gap 17.2 (5-19) 04/07/25 18:47 BUN 23 mg/dL (8-23) 04/07/25 18:47 Creatinine 0.7 mg/dL (0.7-1.2) 04/07/25 18:47 GFR Calculation Not Reportable 04/07/25 18:47 Glucose 106 mg/dL (65-115) 04/07/25 18:47 POC Glucose 111 mg/dL (70-110) H 04/07/25 19:05 Calculated Osmolality 292 mOsm/kg (285-295) 04/07/25 18:47 Calcium 9.1 mg/dL (8.5-10.5) 04/07/25 18:47 Total Bilirubin 1.0 mg/dL (0.15-1.2) 04/07/25 18:47 AST 17 U/L (0-40) 04/07/25 18:47 ALT 13 U/L (0-41) 04/07/25 18:47 Alkaline Phosphatase 60 U/L (40-130) 04/07/25 18:47 Total Protein 6.9 g/dL (6.6-8.7) 04/07/25 18:47 Albumin 3.9 g/dL (3.5-5.2) 04/07/25 18:47 Globulin 3.0 g/dL (1.3-4.6) 04/07/25 18:47 Urine Color Yellow (Yellow) 04/07/25 23:00 Urine Appearance Clear (CLEAR) 04/07/25 23:00 Urine pH 5.5 (5-7) 04/07/25 23:00 Ur Specific [place] 1.018 (1.005-1.030) 04/07/25 23:00 Urine Protein Trace (Negative) A 04/07/25 23:00 Urine Glucose (UA) Negative (Normal) 04/07/25 23:00 Urine Ketones 1+ (Negative) H 04/07/25 23:00 Urine Blood Negative (Negative) 04/07/25 23:00 Urine Nitrate Negative (Negative) 04/07/25 23:00 Urine Bilirubin Negative (Negative) 04/07/25 23:00 Urine Urobilinogen 1.0 mg/dL (Negative) 04/07/25 23:00 Ur Leukocyte Esterase Trace (Negative) A 04/07/25 23:00 Urine RBC 0-2 /hpf (0-2) 04/07/25 23:00 Urine WBC 0-5 /hpf (0-5) 04/07/25 23:00 Ur Squamous Epith Cells 0-5 /hpf (0-5) 04/07/25 23:00 Amorphous Sediment Not Reportable 04/07/25 23:00 Urine Bacteria None seen /hpf (NONE) 04/07/25 23:00 Hyaline Casts 2.46 /lpf 04/07/25 23:00 Urine Opiates Screen Negative ng/mL (Negative) 04/07/25 23:00 Ur Barbiturates Screen Negative ng/mL (Negative) 04/07/25 23:00 Ur Phencyclidine Scrn Negative ng/mL (Negative) 04/07/25 23:00 Ur Amphetamines Screen Negative ng/mL (Negative) 04/07/25 23:00 U Benzodiazepines Scrn Negative ng/mL (Negative) 04/07/25 23:00 Urine Cocaine Screen Negative ng/mL (Negative) 04/07/25 23:00 U Marijuana (THC) Screen Negative ng/mL (Negative) 04/07/25 23:00 All radiology interpretation(s) finalized by discharge EKG Data EKG 1: Interpretation: Sinus rhythm with a rate of 80, MO 282, QRS 108, QTc 385, first-degree AV block, no ST segment elevation or depression Discharge Plan Discharge Patient Disposition: Home Clinical Impression: Weakness of both legs HTN (hypertension) Qualifiers: Hypertension type: primary hypertension Qualified Code(s): I10 - Essential (primary) hypertension Condition: Stable Prescriptions: No Action carvedilol [Coreg] 6.25 mg tablet 6.25 mg PO BID Rx Instructions: must administer with a meal/food losartan 100 mg tablet 100 mg PO DAILY potassium chloride 20 mEq tablet extended release 20 meq PO DAILY omega 5-xmt-wns-fish oil 1,000 mg (120 mg-180 mg) capsule 1 cap PO DAILY vitamin E (dl, acetate) Oil topical magnesium oxide 500 mg capsule 500 mg PO DAILY Centrum Silver Men 300-600-300 mcg tablet 1 tab PO DAILY Tart Edge Extract 1,000 mg capsule PO ascorbic acid (vitamin C) 1,000 mg capsule 1 g PO Q6H lysine [L-Lysine] 500 mg tablet 500 mg PO DAILY zinc sulfate 50 mg zinc (220 mg) capsule 50 mg PO DAILY cyanocobalamin (vitamin B-12) 1,000 mcg capsule 1,000 mcg PO DAILY cholecalciferol (vitamin D3) 250 mcg (10,000 unit) capsule 250 mcg PO DAILY NAC 600 mg tablet 600 mg PO B complex PO furosemide [Lasix] 40 mg tablet 40 mg PO BID Discharge Orders: Discharge ED (Routine); Ordered 04/08/25 Ordered By: Jagdeep Lino Referrals: Lakisha Scott PA [Primary Care Provider, [facility]] Discharge Diet: Advance as tolerated Discharge Activity: Resume usual activity Patient Instructions: Opioid Safety, Pain Management Activity Restrictions/Additional Instructions: Please follow-up with your primary care physician regarding your weakness and elevated blood pressure. Return to the emergency department for any new or worsening symptoms Print Language: [place] Coding Level of Care Code ED [place] Floor for Chg Fwd Related Data Home Medications ?Medication ?Instructions ?Recorded ?Confirmed B complex PO 02/27/23 03/06/25 acetylcysteine 600 mg tablet (NAC) 600 mg PO 02/27/23 03/06/25 ascorbic acid (vitamin C) 1,000 mg 1 g PO Q6H 02/27/23 03/06/25 capsule carvedilol 6.25 mg tablet (Coreg) 6.25 mg PO BID 02/27/23 03/06/25 cholecalciferol (vitamin D3) 250 250 mcg PO DAILY 02/27/23 03/06/25 mcg (10,000 unit) capsule cyanocobalamin (vitamin B-12) 1,000 mcg PO DAILY 02/27/23 03/06/25 1,000 mcg capsule losartan 100 mg tablet 100 mg PO DAILY 02/27/23 03/06/25 lysine 500 mg tablet (L-Lysine) 500 mg PO DAILY 02/27/23 03/06/25 magnesium oxide 500 mg capsule 500 mg PO DAILY 02/27/23 03/06/25 [id number] 300 mcg-K 60 1 tab PO DAILY 02/27/23 03/06/25 mcg-lycop 600 mcg-lutein 300 mcg tablet (Centrum Silver Men) omega 0-gpm-bwi-fish oil 1,000 mg 1 cap PO DAILY 02/27/23 03/06/25 (120 mg-180 mg) capsule potassium chloride 20 mEq 20 meq PO DAILY 02/27/23 03/06/25 tablet,extended release sour edge extract 1,000 mg mg PO 02/27/23 03/06/25 capsule (Tart Edge Extract) vitamin E (dl, acetate) ea topical 02/27/23 03/06/25 zinc sulfate 50 mg zinc (220 mg) 50 mg PO DAILY 02/27/23 03/06/25 capsule furosemide 40 mg tablet (Lasix) 40 mg PO BID 09/01/23 03/06/25 Allergies Allergy/AdvReac Type Severity Reaction Status Date / Time Penicillins Allergy Severe ALGY-Hives Verified 03/06/25 09:41
[2025-04-07] MEDS: sodium chloride 0.9% 500 ML IV (22:01)
[2025-04-07 23:08] LABS: Bilirubin Urine Negative (Negative); Blood Urine Negative (Negative); Glucose Urine UA Negative (Normal); Ketones Urine 1+ (Negative); Leukocyte Esterase Urine Trace (Negative); Nitrate Urine Negative (Negative); Protein Urine Trace (Negative); Specific Gravity, Urine 1.018 (1.005-1.030); Urine Appearance Clear (CLEAR); Urine Color Yellow (Yellow); pH Urine 5.5 (5-7)
[2025-04-07 23:13] LABS: Add Urine Microscopic? YES; Bacteria Urine None Seen /hpf; Hyaline Casts Urine 2.46 /lpf; RBC Urine 0-2 /hpf (0-2); Squamous Epithelial Cell Urine 0-5 /hpf (0-5); WBC Urine 0-5 /hpf (0-5)
[2025-04-07 23:14] LABS: Amphetamines Screen Urine Negative (Negative); Barbiturates Screen Urine Negative (Negative); Benzodiazepines Screen Urine Negative (Negative); Cocaine Screen Urine Negative (Negative); Opiate Screen Urine Negative (Negative); PCP Screen Urine Negative (Negative); THC Screen Urine Negative (Negative)
== END 2025-04-08 02:00 | disposition home or self-care (01) ==
PROVIDERS: Emergency Provider General Practice; PCP Physician Assistant
DX: R53.1 Weakness (principal); I25.10 Atherosclerotic heart disease of native coronary artery without angina pectoris; I11.0 Hypertensive heart disease with heart failure; I50.9 Heart failure, unspecified; Z87.891 Personal history of nicotine dependence
CPT/HCPCS: 36415; 36416; 70450; 71045; 80053; 80306; 81001; 82962; 85025; 85610; 85730; 93005; 96360; 96361; 99285; J7040

== ENCOUNTER 2025-04-20 10:11 | Outpatient (RCR) | payer SELFPAY | END 2025-05-19 23:59 | disposition home or self-care (01) | LOC: CR 10:11 | PROVIDERS: PCP Physician Assistant; Visit Provider Family Medicine | DX: I25.10 Atherosclerotic heart disease of native coronary artery without angina pectoris (principal) ==

== ENCOUNTER 2025-05-20 11:29 | Outpatient (RCR) | payer SELFPAY | END 2025-06-19 23:59 | disposition home or self-care (01) | LOC: CR 11:29 | PROVIDERS: PCP Physician Assistant; Visit Provider Family Medicine | DX: I25.10 Atherosclerotic heart disease of native coronary artery without angina pectoris (principal) ==

== ENCOUNTER 2025-06-20 14:38 | Outpatient (RCR) | payer SELFPAY | END 2025-07-20 23:59 | disposition home or self-care (01) | LOC: CR 14:38 | PROVIDERS: PCP Physician Assistant; Visit Provider Family Medicine | DX: I25.10 Atherosclerotic heart disease of native coronary artery without angina pectoris (principal) ==

== ENCOUNTER 2025-07-22 14:06 | Outpatient (RCR) | payer SELFPAY | END 2025-08-19 23:59 | disposition home or self-care (01) | LOC: CR 14:06 | PROVIDERS: PCP Physician Assistant; Visit Provider Family Medicine | DX: I25.10 Atherosclerotic heart disease of native coronary artery without angina pectoris (principal) ==

== ENCOUNTER 2025-08-20 08:48 | Outpatient (RCR) | payer SELFPAY | END 2025-09-19 23:59 | disposition home or self-care (01) | LOC: CR 08:48 | PROVIDERS: PCP Physician Assistant; Referring Provider Internal Medicine; Visit Provider Family Medicine | DX: I25.10 Atherosclerotic heart disease of native coronary artery without angina pectoris (principal) ==

== ENCOUNTER 2025-09-20 12:40 | Outpatient (RCR) | payer SELFPAY | END 2025-10-19 23:59 | disposition home or self-care (01) | LOC: CR 12:40 | PROVIDERS: PCP Physician Assistant; Referring Provider Internal Medicine; Visit Provider Family Medicine | DX: I25.10 Atherosclerotic heart disease of native coronary artery without angina pectoris (principal) ==

== ENCOUNTER 2025-10-20 09:05 | Outpatient (RCR) | payer SELFPAY | END 2025-11-19 23:59 | disposition home or self-care (01) | LOC: CR 09:05 | PROVIDERS: PCP Physician Assistant; Referring Provider Internal Medicine; Visit Provider Family Medicine | DX: I25.10 Atherosclerotic heart disease of native coronary artery without angina pectoris (principal) ==